=== PATIENT | male | born 1950 | race African-American/Black ===

== ENCOUNTER 2017-02-19 19:32 | Emergency (ER) | payer SELFPAY ==
[~2017-02-19] VITALS: Ht 182.9 cm; Wt 67.1 kg
[2017-02-19 19:50] VITALS: BP 142/80
--- NOTE | 2017-02-19 20:23 | PHYS DOC ---
Past Medical History Past Medical History: Other Additional Past Medical Histor: CHONIC BACK PAIN Past Surgical History: Other Additional Past Surgical Histo: BACK SX (3X), L WRIST SX, R ELBOW SX Alcohol Use: None Drug Use: None Adult General Chief Complaint Chief Complaint: LOWER BACK PAIN OR INJURY HPI HPI Patient is a 66 year old male with history of back pain who presents today with exacerbation of chronic back pain. Patient is traveling to [place] to [place]. Patient denies any trauma. He states the pain got worse during the car ride. Patient states he has a PCP in [place]. Patient is requesting some pain medicine and muscle relaxer. He states he rarely has to be seen for his back pain, he states he typically takes Tylenol with good relief which she states he has tried with no relief. He states the last time he was seen by his doctor for the pain was a couple years ago. Patient denies any pain radiating to bilateral lower extremities. Denies any loss of bowel bladder function. PCP Dr. Figueroa in [place] Review of Systems Review of Systems Constitutional: Denies fever or chills [] Musculoskeletal: Back pain Integument: Denies rash or skin lesions [] Neurologic: Denies headache, focal weakness or sensory changes [] Endocrine: Denies polyuria or polydipsia [] Current Medications Current Medications Current Medications Medications (Trade) Dose Ordered Sig/Wally Start Time Stop Time Status Last Admin Dose Admin Diazepam (Valium) 5 mg 1X ONCE 02/19/17 20:30 02/19/17 20:31 Oxycodone/ Acetaminophen (Percocet 5/325) 2 tab 1X ONCE 02/19/17 20:30 02/19/17 20:31 Allergies Allergies Allergies Coded Allergies Type Severity Reaction Last Updated Verified morphine Allergy Severe Anaphylaxis 02/19/17 Yes NSAIDS (Non-Steroidal Anti-Inflamma Allergy Intermediate GASTRIC ULCERS Yes Physical Exam Physical Exam Constitutional: Well developed, well nourished, no acute distress, non-toxic appearance. [] Skin: Warm, dry, no erythema, no rash. [] Back: Diffuse paraspinal muscle tenderness to the lateral lower lumbar region, no midline lumbar tenderness, no CVA tenderness. [] Extremities: No tenderness, no cyanosis, no clubbing, ROM intact, no edema. [] Neurologic: Alert and oriented X 3, normal motor function, normal sensory function, no focal deficits noted. [] Psychologic: Affect normal, judgement normal, mood normal. [] Current Patient Data Vital Signs Vital Signs Date Time Temp Pulse Resp B/P (MAP) Pulse Ox O2 Delivery O2 Flow Rate FiO2 02/19/17 19:50 98.1 84 16 100 Room Air 98.1 EKG EKG [] Radiology/Procedures Radiology/Procedures [] Course & Med Decision Making Course & Med Decision Making Pertinent Labs and Imaging studies reviewed. (See chart for details) Patient is in the ED with exacerbation of chronic back pain. He is travelling by car, to [place]. He states he had to stop and be seen in the ED and continue with trip. Patient denies any trauma. He has family who are driving. He 'll be discharged with instructions to follow-up with his own doctor in one week. He was given a pain relief in the ED. Dragon Disclaimer Dragon Disclaimer This electronic medical record was generated, in whole or in part, using a voice recognition dictation system. Departure Departure Impression: Primary Impression: Acute exacerbation of chronic low back pain Disposition: HOME, SELF-CARE Condition: STABLE Patient Instructions: Back Pain, Adult, [id number] Additional Instructions: You were seen for chronic back pain. We highly recommend you follow-up with your own doctor in [place]. You can apply heat to ice the affected area. Come back to the ED if symptoms worsen. Scripts Hydrocodone/Apap 5-325 (NORCO 5-325 TABLET) 1 Each Tablet 1-2 TAB PO Q4-6HRS, #10 TAB Prov: ONUR CISSE APRN 02/19/17 Diazepam (VALIUM) 10 Mg Tablet 10 MG PO TID Y for MUSCLE SPASMS, #10 TAB Prov: ONUR CISSE APRN 02/19/17 ONUR CISSE APRN Feb 19, 2017 20:22
[2017-02-19] MEDS ORDERED: HYDR-971 PO (20:28)
[2017-02-19] MEDS ORDERED: VALIUM10 MG PO (20:28)
[2017-02-19] MEDS ORDERED: diazePAM 5 MG TABLET PO ONE (20:30)
[2017-02-19] MEDS ORDERED: oxyCODONE/APAP 5/325 1 TAB TABLET PO ONE (20:30)
== END 2017-02-19 20:40 | disposition home or self-care (01) ==
LOC: ER 19:32
DX: G89.29 Other chronic pain (principal); M54.5 Low back pain; Z88.5 Allergy status to narcotic agent; Z88.8 Allergy status to other drugs, medicaments and biological substances
CPT/HCPCS: 99283